=== PATIENT | male | born 1980 | race Caucasian/White ===

== ENCOUNTER 2021-06-23 15:47 | Emergency (ER) | payer BC ==
--- OUTSIDE RECORDS SUMMARY | 2021-06-23 15:50 | XMS REPORT | Continuity of Care Document ---
:1980 Author Organization [facility] t Address [address] [place] [address] Care Team Providers Name Role Phone Jonathon Cuellar Primary Care Physician Toya Bates DO Attending Clinician Lab, Fam Pob I Attending Clinician Unavailable Anene STATUARY PAINTER Attending Clinician ANENE Attending Clinician Unavailable Doctor Unassigned, Name Attending Clinician Unavailable Payers Payer Name Policy Type Policy Number Effective Date Expiration Date S [facility] - [id number] 2013 00:00:00 OUT OF STATE Problems This patient has no known problems. Allergies, Adverse Reactions, Alerts Allergy Allergy Status Severity Reaction(s) Onset Inactive Treating Comm ents Source Name Type Date Date Clinician NO KNOWN Drug Active Univers ALLERGIE Class ity [facility] Social History Social Habit Start Date Stop Date Quantity Comments Source Exposure to Not sure [facility] SARS-CoV-2 (event) Medica l Branch Sex Assigned At [birth year] [facility] 00:00:00 00:00:00 [facility] Smoking Status Start Date Stop Date Source Unknown if ever smoked [facility] Medications This patient has no known medications. Vital Signs Vital Name Observation Time Observation Value Comments Source Systolic blood 2020-12-28 20:30:00 135 mm[Hg] [facility] Diastolic blood 2020-12-28 20:30:00 81 mm[Hg] Unive [facility] Heart rate 2020-12-28 20:30:00 66 /min [facility] Respiratory rate 2020-12-28 20:30:00 16 /min [facility] Oxygen saturation in 2020-12-28 20:30:00 99 /min [facility] Arterial blood by [facility] Pulse oximetry [place] Body temperature 2020-12-28 20:07:00 37.17 [place] [facility] Body height 2020-12-28 20:07:00 190.5 cm [facility] Body weight 2020-12-28 20:07:00 81.647 kg [facility] BMI 2020-12-28 20:07:00 22.50 kg/m2 [facility] Procedures This patient has no known procedures. Encounters Start End Encounter Admission Attending Care Care Encounter Source Date/Time Date/Time Type Type Clinicians Facility Department ID 2021-02-10 Emergency [facility] [id number] Univers 23:38:02 [facility] of [facility] 2020-12-28 2020-12-28 [facility] [id number] Univers 15:02:00 16:29:00 Idalmis Chavarria [id number] ity [id number] [facility] [id number] [facility] [address] [place] 2020-04-22 2020-04-22 Laboratory Lab, Adc Fam Pob I [facility] [id number]. [id number] Univers 15:10:46 15:30:46 Only Vita Vázquez [id number] ity [facility] [id number] Thony as Professio [id number] [facility] [address] 2020-04-22 2020-04-22 Outpatient R [facility] [id number] Univers 15:20:00 15:20:00 VITA willson [facility] 2020-04-22 2020-04-22 Letter Doctor DEA [id number] Univers 00:00:00 00:00:00 (Out) Unassigned, LORENA [id number] ity of [place] [facility] [id number] Thony as [phone] Medi sukh [address] Results This patient has no known results.
--- NOTE | 2021-06-23 18:13 | ER ---
Nurse's Notes [facility] Name: Jose Manuel Ceja Age: 40 yrs Sex: Male : 1980 Arrival Date: 06/23/2021 Time: 15:51 Bed 12 Private MD: Diagnosis: Presentation: 06/23 16:04 Chief complaint: Patient states: he was working in the yard this past weekend when he ap3 got a splinter in his left pinky finger. Patient reports removing splinter, and "picking at it" this afternoon, which resulted in a continuous bleed. Patient presents to the ED with a minimally bleeding wound on the tip of his left pinky. Nurse applied 2X2 gauze and pressure dressing. Patient reports that this has happened with a previous splinter in the past. Coronavirus screen: At this time, the client does not indicate any symptoms associated with coronavirus-19. Ebola Screen: No symptoms or risks identified at this time. Initial Sepsis Screen: Does the patient meet any 2 criteria? HR > 90 bpm. No. Patient's initial sepsis screen is negative. Does the patient have a suspected source of infection? No. Patient's initial sepsis screen is negative. Risk Assessment: Do you want to hurt yourself or someone else? Patient reports no desire to harm self or others. Onset of symptoms was June 23, 2021. 16:04 Method Of Arrival: Ambulatory ap3 16:04 Acuity: GERARD 4 ap3 Triage Assessment: 16:07 General: Appears in no apparent distress. Behavior is calm, cooperative. Pain: Denies ap3 pain. Neuro: Level of Consciousness is awake, alert, obeys commands, Gait is steady. Respiratory: Airway is patent Respiratory effort is even, unlabored. Derm: Wound noted palmar aspect of distal phalanx of left little finger. Injury Description: Puncture sustained to palmar aspect of distal phalanx of left little finger. Historical: - Allergies: 16:07 No Known Allergies; ap3 - Home Meds: 16:07 None [Active]; ap3 - PMHx: 16:07 Anemia; ap3 - Immunization history:: Client reports having NOT received the Covid vaccine. Last tetanus immunization: up to date Flu vaccine is up to date. - Social history:: Smoking status: Patient denies any tobacco usage or history of. Patient uses alcohol, occasionally. reports drinking a "couple beers today at lunch". Screenin:08 Abuse screen: Denies threats or abuse. Nutritional screening: No deficits noted. ap3 Tuberculosis screening: No symptoms or risk factors identified. Fall Risk None identified. No fall in past 12 months (0 pts). Vital Signs: 16:04 BP 155 / 92; Pulse 111; Resp 17; Temp 100.4; Pulse Ox 100% ; Weight 81.65 kg; Height 6 ap3 ft. 3 in. (190.50 cm); Pain 0/10; 16:04 Body Mass Index 22.50 (81.65 kg, 190.50 cm) ap3 ED Course: 15:51 Patient arrived in ED. kz 16:03 Dressings: Kerlix X 1; palmar aspect of distal phalanx of left little finger. ap3 16:07 Triage completed. ap3 16:08 Arm band placed on right wrist. ap3 16:29 [facility] cp 16:29 Ashvin Doyle MD is Attending Physician. cp 17:50 Patient's name was called from ER lobby. No response. Unable to locate patient. Will jl7 disposition as left without being seen by a provider. 18:00 Patient's name was called from ER lobby. No response. Unable to locate patient. Will jl7 disposition as left without being seen by a provider. 18:13 Patient's name was called from ER lobby. No response. Unable to locate patient. Will jl7 disposition as left without being seen by a provider. Administered Medications: No medications were administered Outcome: 18:13 Patient left the ED. jl7 19:51 Patient left the ED. ab2 Signatures: Hussain Mendenhall PA PA cp Margaret Barcenas RN RN jl7 Kierra Forte RN RN ap3 Fer White ab2 Rayne Ho
[2021-06-23 18:38] VITALS: BP 155/92; TEMP 100.4; O2SAT 100
== END 2021-06-23 19:51 | disposition left against medical advice (07) ==
LOC: ER 15:47
DX: Z53.21 Procedure and treatment not carried out due to patient leaving prior to being seen by health care provider (principal)
CPT/HCPCS: 99281